=== PATIENT | female | born 1970 | race Caucasian/White ===

== ENCOUNTER → 2019-07-05 | Outpatient (CLI) | payer OTHER ==
[2019-07-11 10:04] LABS: DRVV SCREEN 85.1 SEC
[2019-07-11 10:18] LABS: PTT LUPUS TYPE ANTICOAG SCREEN 2.1 (0-1.2)
[2019-07-11 10:20] LABS: DRVV CONFIRM 75.9 SEC; NORMALIZED RATIO 1.05 (0.00-1.20)
[2019-07-12 00:06] LABS: ANA (HEP2) Negative (.); ANTI DS-DNA AB Negative (Negative); BETA-2 GLYCOPROTEIN I ABY IGA 9 (0-25); BETA-2 GLYCOPROTEIN I ABY IGG <9 (0-20); BETA-2 GLYCOPROTEIN I ABY IGM <9 (0-32); CARDIOLIPIN IGA ANTIBODY <9 APL U/mL (0-11); CARDIOLIPIN IGG ANTIBODY <9 GPL U/mL (0-14); CARDIOLIPIN IGM ANTIBODY <9 MPL U/mL (0-12)
== END ==
LOC: M PLALAB 14:53
PROVIDERS: ATTEND Internal Medicine Pulmonary Disease
DX: I26.99 Other pulmonary embolism without acute cor pulmonale (principal)

== ENCOUNTER → 2019-08-16 | Outpatient (CLI) | payer OTHER ==
--- NOTE | 2019-08-16 16:03 | ECHO ---
DATE OF STUDY: 08/16/2019 REFERRING PHYSICIAN: Dr. Laura Miller INDICATION: Pulmonary embolism. HEIGHT: 5 feet 4 inches WEIGHT: 210 pounds 2-D MEASUREMENTS: LVOT: 2.1 cm Aortic root: 2.8 cm Left atrium: 4.0 cm Ventricular septum: 1.03 cm Posterior wall: 1.01 cm Left ventricle diastole: 4.9 cm Inferior vena cava: 1.4 cm (more than 50%; respiratory variation) DOPPLER MEASUREMENTS: No aortic stenosis. No aortic regurgitation. No mitral stenosis. Trace mitral regurgitation. Trace tricuspid regurgitation. No pulmonic regurgitation. Aortic valve velocity: 128 cm/sec LVOT velocity: 80.9 cm/sec LVOT VTI: 19.3 cm Mitral E velocity: 93.8 cm/sec Mitral A velocity: 63.0 cm/sec Mitral deceleration time: 190 ms Pulmonary artery acceleration time: 151 ms MITRAL ANNULAR TISSUE DOPPLER: E prime septal: 9.5 cm/sec E prime lateral: 11.9 cm/sec DESCRIPTION: The rhythm was sinus. Image quality was good. This was a 2-D, M-mode, color flow Doppler and pulsed wave Doppler examination and included mitral annular tissue Doppler. CONCLUSIONS: 1. Normal right ventricle size and systolic function. Appearance of normal right atrial size. Suggestive of normal pulmonary artery systolic pressure. Normal central venous pressure. Trace tricuspid regurgitation. Structurally normal tricuspid leaflets. 2. Normal left ventricle internal dimensions and wall thickness. Normal regional LV wall motion and wall thickening. Normal LV systolic function. Left ventricular ejection fraction (LVEF) 60% by visual estimate. Normal LV diastolic function. 3. Mild left atrial dilatation. 4. Tiny pericardial effusion seen over posterobasal and inferobasal regions, quite likely within normal limits. 5. Otherwise normal-appearing echocardiogram Doppler findings.
== END ==
LOC: M CARPUL 10:06
PROVIDERS: ATTEND Internal Medicine Pulmonary Disease
DX: I26.99 Other pulmonary embolism without acute cor pulmonale (principal); I51.7 Cardiomegaly

== ENCOUNTER → 2020-07-31 | Outpatient (REF) | payer OTHER | LOC: M PLALAB 15:05 | PROVIDERS: ATTEND Internal Medicine Pulmonary Disease | DX: I26.99 Other pulmonary embolism without acute cor pulmonale (principal) ==